=== PATIENT | female | born 1965 | race Caucasian/White ===

== ENCOUNTER 2016-09-11 08:07 | Inpatient (IN) | payer MEDICAID ==
[2016-09-11] VITALS (23 sets, daily range): BP systolic 82–116; BP diastolic 39–94; PULSE 61–83; RESP 9–20; TEMP 98.4; Ht 172.7 cm; Wt 66.0 kg
[~2016-09-11] VITALS: Ht 172.7 cm; Wt 66.0 kg
[2016-09-11] MEDS ORDERED: ASPIRIN 81 MG TAB PO STA (08:16)
[2016-09-11] MEDS ORDERED: NITROGLYCERIN 2% 1 GM OINT PKT TD STA (08:16)
[2016-09-11 08:42] LABS: ADD SCAN DIFF NO
[2016-09-11 08:48] LABS: BASOPHIL # 0.1 10^3/ul (0.0-0.1); BASOPHILS % 0.6 % (0.0-2.0); EOSINOPHILS # 0.6 10^3/ul (0.0-0.5); EOSINOPHILS % 4.7 % (0.0-7.0); HEMATOCRIT 43.8 % (37.0-47.0); HEMOGLOBIN 14.3 g/dl (12.0-16.0); LYMPHOCYTES # 3.8 10^3/ul (0.8-2.9); LYMPHOCYTES % 30.8 % (15.0-51.0); MEAN CORPUSCULAR HEMOGLOBIN 31.4 pg (29.0-33.0); MEAN CORPUSCULAR HGB CONC 32.6 g/dl (32.0-37.0); MEAN CORPUSCULAR VOLUME 96.1 fl (82.0-101.0); MEAN PLATELET VOLUME 11.3 fl (7.4-10.4); MONOCYTE # 0.8 10^3/ul (0.3-0.9); MONOCYTES % 6.3 % (0.0-11.0); NEUTROPHIL # 7.1 10^3/ul (1.6-7.5); NEUTROPHILS % 57.2 % (39.0-77.0); PLATELET COUNT 238 10^3/UL (140-415); RED BLOOD COUNT 4.56 10^6/ul (4.20-5.40); RED CELL DISTRIBUTION WIDTH 13.6 % (11.5-14.5); WHITE BLOOD COUNT 12.4 10^3/ul (4.8-10.8)
--- NOTE | 2016-09-11 08:50 | RADRPT ---
PROCEDURE: Chest Radiograph. CLINICAL INDICATION: Chest pain TECHNIQUE: Single frontal chest radiograph. COMPARISON: None available FINDINGS: The cardiomediastinal silhouette is within normal limits. No infiltrate or effusion is seen. Th e bones are intact. IMPRESSION: 1. Unremarkable chest radiograph. RPTAT: KK .Chandrakant Hernandez MD, MD Date Time Electronically viewed and signed by .Chandrakant Hernandez MD, on 09/11/2016 08:50 .B/
[2016-09-11 08:53] LABS: INR 0.9; PROTIME 12.1 Sec (12.2-14.2); PT RATIO 0.9
[2016-09-11 08:54] LABS: POTASSIUM 3.5 mmol/L (3.5-5.1)
[2016-09-11 08:56] LABS: CREATININE 1.07 mg/dl (0.44-1.00)
[2016-09-11 08:57] LABS: CALCIUM 9.3 mg/dl (8.4-10.2)
[2016-09-11 08:58] LABS: PARTIAL THROMBOPLASTIN TIME 26.9 Sec (25.0-35.0)
[2016-09-11] MEDS ORDERED: SERT100T PO (09:16)
[2016-09-11] MEDS ORDERED: BUSP10TA2 PO (09:17)
[2016-09-11] MEDS ORDERED: AMLO5TAB4 PO (09:17)
[2016-09-11] MEDS ORDERED: CLOP75TA27 PO (09:18)
[2016-09-11] MEDS ORDERED: NIT4 SL (09:19)
[2016-09-11 09:24] LABS: TROPONIN-I 2.03 ng/ml (0.00-0.12)
[2016-09-11] MEDS ORDERED: HEPARIN 1000 UNITS/ML 10 ML INJ IV STA (09:38)
[2016-09-11] MEDS ORDERED: HEPARIN 25000 UNITS/250 ML 250 ML IV STA (09:38)
--- NOTE | 2016-09-11 10:07 | ERA ---
ER Documentation Chief Complaint Date/Time DATE: 09/11/16 TIME: 10:01 Chief Complaint BROUGHT IN VIA EMS DUE TO CHEST PAIN HPI This is a 50-year-old female presents with chest pain. The patient reports a history of Prinzmetal's angina with a clean angiogram approximately 1 year ago. The patient currently takes Plavix. The patient states that prior to arrival she noted substernal chest pressure and diaphoresis that is consistent with her anginal equivalent. The patient took nitro at home with no relief. Her pain is dramatically improved with aspirin and nitro via EMS. Patient is now pain- free. She denies any pleuritic pain. She does describe a history of anxiety but states this is somewhat different. ROS All systems reviewed and are negative except as per history of present illness. Medications Home Meds Reported Medications Nitroglycerin* (Nitrostat*) 0.4 Mg Tab.subl, 0.4 MG SL Q5MIN Y for CHEST PAIN, BOTTLE 09/11/16 Clopidogrel Bisulfate (Clopidogrel) 75 Mg Tablet, 75 MG PO DAILY, #30 TAB 09/11/16 Amlodipine Besylate* (Norvasc*) 5 Mg Tablet, 5 MG PO BID, TAB 09/11/16 Buspirone Hcl* (Buspirone Hcl*) 10 Mg Tab, 15 MG PO BID, TAB 09/11/16 Sertraline Hcl* (Zoloft*) 100 Mg Tablet, 100 MG PO DAILY, #30 TAB 09/11/16 Allergies Allergies: Coded Allergies: bupropion (Verified Allergy, Unknown, hives, 09/11/16) PMhx/Soc History of Surgery: Yes (donated r. kidney to brother 2014) Hx Cardiac Disorders: Yes ([place] 2016, Angina) Hx Psychiatric Problems: Yes (Anxiety) Hx Alcohol Use: Yes Hx Substance Use: No Hx Tobacco Use: No Smoking Status: Never smoker FmHx Family History: No diabetes Physical Exam Vitals Vital Signs Date Time Temp Pulse Resp B/P Pulse Ox O2 Delivery O2 Flow Rate FiO2 09/11/16 09:30 88 101/88 09/11/16 08:44 98.4 78 16 100/55 100 Nasal Cannula 2.0 09/11/16 08:42 Nasal Cannula 2 09/11/16 08:17 98.3 88 18 139/92 98 Physical Exam General: Well developed, well nourished, no acute distress Head: Normocephalic, atraumatic. Eyes: Pupils equally reactive, EOM intact ENT: Moist mucous membranes Neck: Supple, no lymphadenopathy Respiratory: Lungs clear bilaterally, no distress Cardiovascular: RRR, no murmurs, rubs, or gallops Abdominal: Soft, non-tender, non-distended, no peritoneal signs : Deferred MSK: No edema, no unilateral swelling, 5/5 strength, no pulse deficits Neurologic: Alert and oriented, moving all extremities, normal speech, no focal weakness, no cerebellar signs Skin: No rash Psych: Normal mood Result Diagram: 09/11/1635 09/11/1635 Results 24 hrs Laboratory Tests Test 09/11/16 08:35 White Blood Count 12.410^3/ul Red Blood Count 4.5610^6/ul Hemoglobin 14.3g/dl Hematocrit 43.8% Mean Corpuscular Volume 96.1fl Mean Corpuscular Hemoglobin 31.4pg Mean Corpuscular Hemoglobin Concent 32.6g/dl Red Cell Distribution Width 13.6% Platelet Count 82994^3/UL Mean Platelet Volume 11.3fl Neutrophils % 57.2% Lymphocytes % 30.8% Monocytes % 6.3% Eosinophils % 4.7% Basophils % 0.6% Nucleated Red Blood Cells % 0.0/100WBC Neutrophils # 7.110^3/ul Lymphocytes # 3.810^3/ul Monocytes # 0.810^3/ul Eosinophils # 0.610^3/ul Basophils # 0.110^3/ul Nucleated Red Blood Cells # 0.010^3/ul Prothrombin Time 12.1Sec Prothrombin Time Ratio 0.9 INR International Normalized Ratio 0.90 Activated Partial Thromboplast Time 26.9Sec Sodium Level 142mmol/L Potassium Level 3.5mmol/L Chloride Level 103mmol/L Carbon Dioxide Level 27mmol/L Anion Gap 16 Blood Urea Nitrogen 20mg/dl Creatinine 1.07mg/dl Glucose Level 126mg/dl Calcium Level 9.3mg/dl Troponin I 2.030ng/ml Current Medications Medications (Trade) Dose Ordered Sig/Broderick Route PRN Reason Start Time Stop Time Status Last Admin Dose Admin Aspirin (Aspirin) 162 mg ONCE STAT PO 09/11/16 08:16 09/11/16 08:21 DC 09/11/16 08:56 Nitroglycerin (Nitroglycerin 2% Oint) 1 inch ONCE STAT TD 09/11/16 08:16 09/11/16 08:21 DC 09/11/16 08:56 Heparin Sodium (Porcine) 3954 unit 3,954 unit ONCE STAT IV 09/11/16 09:38 09/11/16 09:40 DC Heparin Sodium (Porcine) (Heparin 85042 Units/250 ml) 250 ml @ 0 mls/hr ONCE STAT IV 09/11/16 09:38 09/11/16 09:40 DC Procedures/MDM EKG, MONITORS, & DIAGNOSTIC IMAGING: EKG #1 8:08 AM EKG: I reviewed and interpreted a 12-lead EKG. Rhythm: Normal sinus rhythm Ectopy: None Intervals: No abnormalities ST segments: Repolarization noted in leads II, III, and aVF, subtle ST segment elevation in lead 2 T waves: No contiguous inversions Repeat EK:11 AM EKG: I reviewed and interpreted a 12-lead EKG. Rhythm: Normal sinus rhythm Ectopy: None Intervals: No abnormalities ST segments: Repolarization noted in leads II, III, and aVF, subtle ST segment elevation in lead 2 T waves: No contiguous inversions Repeat EKG at 8:25 AM EKG: I reviewed and interpreted a 12-lead EKG. Rhythm: Normal sinus rhythm Ectopy: None Intervals: No abnormalities ST segments: Repolarization noted in leads II, III, and aVF, subtle ST segment elevation in lead 2 T waves: No contiguous inversions Chest x-ray: I reviewed and interpreted a 1 view of the chest Mediastinum: No enlargement Cardiac silhouette: No cardiomegaly Airspace: Clear lung mckeon bilaterally without evidence of pneumothorax Bones: No evidence of fracture LAB INTERPRETATION: Elevated troponin of 2 MEDICAL DECISION MAKING: The patient's history, physical exam and clinical presentation is concerning for possible cardiogenic etiology and acute coronary syndrome. The patient does describe a clean angiogram and history of Prinzmetal's angina. This is possibly related to coronary vasospasm. However, the patient's EKG is borderline consistent with possible acute [place]. However, the patient is also chest pain-free. A rapid phone call to cardiology was made. Please see timing section below. Based on the patient's clinical exam and history and risk factors, I have a much lower clinical concern for pulmonary embolism, acute aortic dissection, pneumothorax, pneumonia, cardiac tamponade HEART Score: 7 MACE Rate: 65% Shared Decision Making: We had a conversation regarding risk stratification, MACE rate, and the risks, benefits, alternatives of disposition planning options. Disposition planning: ICU admission ER COURSE: Upon arrival the patient was chest pain-free however her EKG is abnormal. An immediate phone call to mba intern Dr. Ellis was made. Initial contact at approximately 815. He reviewed the EKG and felt this was not consistent with ST elevation myocardial infarction. He agrees with medical management at this time. The patient had serial EKGs that were unchanged. However, the patient's troponin became elevated. I again spoke with Dr. Ellis. He recommended heparin bolus and drip and will take the patient to the [facility]ning [facility] later today. The patient remains chest pain-free. I kept the patient and/or family informed of laboratory and diagnostic imaging results throughout the emergency room course. DISPOSITION PLAN: ICU admission given patient's significant troponin elevation CONSULTATION: Accepting care team and consultations: I discussed the current laboratory data, diagnostic imaging and emergency care provided. Admitting team: Dr. Crowley Admitting team indication: Insurance directed Consulting services: Cardiology, Dr. Ellis Critical Care Note: Total time: 36 minutes Indication/Organ System Threat: Acute coronary syndrome I spent the above amount of critical care time with the patient, not including billable procedures. This included chart review, consultations, repeat bedside evaluations, and titration of appropriate medications to prevent cardiopulmonary or respiratory collapse. Departure Diagnosis: Primary Impression: Non-ST elevation myocardial infarction (NSTEMI) Additional Impression: Acute coronary syndrome Condition: Serious ELIGIO VILLALOBOS MD Sep 11, 2016 10:07
[2016-09-11] MEDS ORDERED: BISACODYL (EC) 5 MG TAB PO PRN (11:30)
[2016-09-11] MEDS ORDERED: ACETAMINOPHEN 325 MG TAB PO PRN (11:30)
[2016-09-11] MEDS ORDERED: HEPARIN 1000 UNITS/ML 10 ML INJ IV ONE (11:30)
[2016-09-11] MEDS ORDERED: ONDANSETRON 4 MG TAB PO PRN (11:30)
[2016-09-11] MEDS ORDERED: DOCUSATE SODIUM 100 MG CAP PO PRN (11:30)
[2016-09-11] MEDS ORDERED: NITROGLYCERIN (SL) 0.4 MG TAB SL PRN ×2 (11:30)
[2016-09-11] MEDS ORDERED: HEPARIN 1000 UNITS/ML 10 ML INJ IV PRN (11:30)
[2016-09-11 12:49] LABS: CK-MB 9.07 ng/ml (0.0-2.4)
[2016-09-11] MEDS ORDERED: SOD CHLORIDE 0.45% 1,000 ML IV SCH (13:00)
[2016-09-11] MEDS ORDERED: HEPARIN 25000 UNITS/250 ML 250 ML IV SCH (13:00)
[2016-09-11] MEDS: ALBUTEROL/IPRATROPIUM (NEB) 3 ML AMP NEB SCH ×3 (13:00→21:19)
[2016-09-11] MEDS ORDERED: IODIXANOL LOCM 100 ML BTL ONE (14:30)
[2016-09-11] MEDS ORDERED: LIDOCAINE 1% (MDV) 20 ML INJ ONE (14:30)
[2016-09-11] MEDS ORDERED: FENTAnyl 50 MCG/ML VIAL ONE (14:31)
[2016-09-11] MEDS ORDERED: HEPARIN 1000 UNITS/ML 10 ML INJ ONE (14:31)
[2016-09-11] MEDS ORDERED: MIDAZOLAM 1 MG/ML 2 ML INJ ONE (14:31)
[2016-09-11] MEDS ORDERED: NITROGLYCERIN (IC) 100 MCG/ML INJ ONE (14:31)
[2016-09-11] MEDS ORDERED: VERAPAMIL 5 MG INJ ONE (14:31)
[2016-09-11] MEDS ORDERED: SOD CHLORIDE 0.9% 500 ML ONE (14:44)
[2016-09-11 15:03] LABS: ADD SCAN DIFF NO
[2016-09-11 15:05] LABS: BASOPHIL # 0.1 10^3/ul (0.0-0.1); BASOPHILS % 0.5 % (0.0-2.0); EOSINOPHILS # 0.6 10^3/ul (0.0-0.5); EOSINOPHILS % 5.4 % (0.0-7.0); HEMATOCRIT 38.3 % (37.0-47.0); HEMOGLOBIN 12.7 g/dl (12.0-16.0); LYMPHOCYTES # 3.4 10^3/ul (0.8-2.9); LYMPHOCYTES % 32.1 % (15.0-51.0); MEAN CORPUSCULAR HGB CONC 33.2 g/dl (32.0-37.0); MEAN CORPUSCULAR VOLUME 96.5 fl (82.0-101.0); MEAN PLATELET VOLUME 11.3 fl (7.4-10.4); MONOCYTE # 0.8 10^3/ul (0.3-0.9); MONOCYTES % 7.4 % (0.0-11.0); NEUTROPHIL # 5.8 10^3/ul (1.6-7.5); NEUTROPHILS % 54.1 % (39.0-77.0); PLATELET COUNT 232 10^3/UL (140-415); RED BLOOD COUNT 3.97 10^6/ul (4.20-5.40); RED CELL DISTRIBUTION WIDTH 13.4 % (11.5-14.5); WHITE BLOOD COUNT 10.7 10^3/ul (4.8-10.8)
[2016-09-11 15:08] LABS: INR 0.94; PROTIME 12.6 Sec (12.2-14.2)
[2016-09-11 15:09] LABS: PARTIAL THROMBOPLASTIN TIME 43.4 Sec (25.0-35.0)
[2016-09-11] MEDS ORDERED: CLOPIDOGREL 300 MG TAB ONE (15:26)
--- NOTE | 2016-09-11 15:50 | CONS ---
Date/Time of Note Date/Time of Note DATE: 09/11/16 TIME: 15:47 Assessment/Plan Assessment/Plan Problems: (1) Acute coronary syndrome Status: Acute (2) Non-ST elevation myocardial infarction (NSTEMI) Status: Acute Additional Assessment/Plan [facility] acute LAD prox Stenosis PCI of prox LAD 3.0x8mm synergy ASA + Plavix Atorvastatin 2D echo plan for possible d/c tomorrow. f.u with primary admission discharge rn. Consultation Date/Type/Reason Admit Date/Time Sep 11, 2016 at 11:27 Date of Consultation: Sep 11, 2016 Type of Consultation: Interventional Cardiology Reason for Consultation NSTEMI Hx of Present Illness Patient is 50 year old F with CP, with EKG chagnes, not meeting STEMI criteria in ER. Admitted with ACS and first trop was 2.0, meet NSTEMI reange. pt [facility] CATH. Constitutional: no complaints Past Medical History Medical History: angina, coronary artery disease Social History Smoking Status: Current every day smoker Exam/Review of Systems Vital Signs Vitals Vital Signs Date Time Temp Pulse Resp B/P Pulse Ox O2 Delivery O2 Flow Rate FiO2 09/11/16 13:30 74 16 86/60 99 Nasal Cannula 09/11/16 13:15 97.7 09/11/16 12:08 2.0 Exam Constitutional: alert Psych: no complaints Head: normocephalic Eyes: nl conjunctiva ENMT: nl external ears & nose Neck: supple Respiratory: clear to auscultation Cardiovascular: regular rate and rhythm Musculoskeletal: nl extremities to inspection Extremities: normal pulses Results Result Diagram: 09/11/16 1410 09/11/16 0835 Results 24 hrs Laboratory Tests Test 09/11/16 08:35 09/11/16 14:10 White Blood Count 12.4 H 10.7 Red Blood Count 4.56 3.97 L Hemoglobin 14.3 12.7 Hematocrit 43.8 38.3 Mean Corpuscular Volume 96.1 96.5 Mean Corpuscular Hemoglobin 31.4 32.0 Mean Corpuscular Hemoglobin Concent 32.6 33.2 Red Cell Distribution Width 13.6 13.4 Platelet Count 238 232 Mean Platelet Volume 11.3 H 11.3 H Neutrophils % 57.2 54.1 Lymphocytes % 30.8 32.1 Monocytes % 6.3 7.4 Eosinophils % 4.7 5.4 Basophils % 0.6 0.5 Nucleated Red Blood Cells % 0.0 0.0 Neutrophils # 7.1 5.8 Lymphocytes # 3.8 H 3.4 H Monocytes # 0.8 0.8 Eosinophils # 0.6 H 0.6 H Basophils # 0.1 0.1 Nucleated Red Blood Cells # 0.0 0.0 Prothrombin Time 12.1 L 12.6 Prothrombin Time Ratio 0.9 1.0 INR International Normalized Ratio 0.90 0.94 Activated Partial Thromboplast Time 26.9 43.4 H Sodium Level 142 Potassium Level 3.5 Chloride Level 103 Carbon Dioxide Level 27 Anion Gap 16 Blood Urea Nitrogen 20 Creatinine 1.07 H Glucose Level 126 Calcium Level 9.3 Creatine Kinase 141 Creatinine Kinase MB (Mass) 9.07 H Troponin I 2.030 *H Medications Medications Current Medications Ceftriaxone Sodium (Rocephin) 50 ml @ 100 mls/hr Q24H IVPB ; Start 09/11/16 at 13:00 Amlodipine Besylate (Norvasc) 5 mg BID PO ; Start 09/11/16 at 21:00 Buspirone HCl (Buspar) 15 mg BID PO ; Start 09/11/16 at 21:00 Clopidogrel Bisulfate (plaVIX) 75 mg DAILY PO ; Start 09/12/16 at 09:00 Nitroglycerin (Nitroglycerin (Sl Tab) 0.4 Mg) 1 tab [id number] PRN SL CHEST PAIN ; Start 09/11/16 at 11:30 Sertraline HCl 100 mg 100 mg DAILY PO ; Start 09/12/16 at 09:00 Sodium Chloride (1/2 NS) 1,000 ml @ 75 mls/hr [id number] IV ; Start 09/11/16 at 13 :00 Ondansetron HCl (Zofran Tab) 4 mg Q6H PRN PO NAUSEA AND/OR VOMITING; Start at 11:30 Acetaminophen (Tylenol Tab) 650 mg Q6H PRN PO PAIN LEVEL 1-3 OR FEVER; Start at 11:30 Morphine Sulfate (morphine) 2 mg Q4H PRN IV PAIN LEVEL 7-10; Start 09/11/16 at 11:30 Docusate Sodium (Colace) 100 mg Q12H PRN PO CONSTIPATION; Start 09/11/16 at 11: 30 Bisacodyl (Dulcolax) 5 mg DAILY PRN PO CONSTIPATION; Start 09/11/16 at 11:30 Pantoprazole (Protonix Tab) 40 mg DAILY@06 PO ; Start 09/12/16 at 06:00 Aspirin (Aspirin) 81 mg DAILY PO ; Start 09/12/16 at 09:00 YARELY SHRESTHA MD Sep 11, 2016 15:50
--- NOTE | 2016-09-11 16:02 | RADRPT ---
Echocardiogram Report Patient Name: PAKO BARRIENTOS Gender: Female Date: 1965 Study Date: 11-Sep-2016 Windows Consultant: Mauro Helton RDCS Location: 9 Ref. Physician: RON JOHNSON Quality: Adequate Procedures: Transthoracic echocardiogram with complete 2D, M-Mode, and doppler examination. Indications: NSTEMI. 2D/M Mode Doppler Measurement Value Normal Ranges Measurement Value Normal Ranges LVIDd 2D 4.1 3.5 - 5.6 cm AV Peak Woody 1.2 m/sec LVIDs 2D 2.1 2.1 - 4.1 cm AV Peak PG 6.0 mmHg FS 2D 48.5 % LVOT Peak Woody 1.1 m/sec LVPWd 2D 0.9 0.6 - 1.1 cm LVOT Peak PG 4.0 mmHg IVSd 2D 0.8 0.6 - 1.1 cm MV E Peak Woody 0.5 m/sec IVS/LVPW 2D 1.0 MV A Peak Owody 0.6 m/sec AoR Diam 2D 2.9 2.0 - 3.7 cm MV E/A 0.8 LA/Ao 2D 1 0 - 1 MV Decel Time 176 msec EDV 2D 67.9 cm3 MV E/A 0.8 ESV 2D 9.3 cm3 LA Dimen 2D 2.2 2.3 - 4.0 cm Findings Left Ventricle: Normal left ventricular systolic function. Normal left ventricular cavity size. Normal left ventricular wall thickness. Ejection fraction is visually estimated at 60 %. Tissue Doppler/Mitral Doppler indices are consistent with impaired relaxation (Stage I diastolic dysfunction). These segments of the LV are hypokinetic mid anterior segment and anterior apex segment. Right Ventricle: Normal right ventricular size. Normal right ventricular systolic function. Left Atrium: The left atrium is normal in size. Right Atrium: The right atrium is normal in size. Mitral Valve: Normal appearance of the mitral valve. Mild mitral annular calcification. No mitral valve regurgitation is seen. Aortic Valve: Normal appearance of the aortic valve. No significant aortic stenosis or insufficiency. Tricuspid Valve: Normal appearance of the tricuspid valve. Unable to obtain RVSP due to minimal presence of tricuspid regurgitation. Pulmonic Valve: Pulmonic valve not well visualized. Pericardium: Normal pericardium with no significant pericardial effusion. Aorta: Normal aortic root. IVC: Normal size and normal respiratory collapse consistent with normal right atrial pressure. Conclusions 1.Normal left ventricular systolic function. Normal left ventricular cavity size. Normal left ventricular wall thickness. Ejection fraction is visually estimated at 60 %. Tissue Doppler/Mitral Doppler indices are consistent with impaired relaxation (Stage I diastolic dysfunction). These segments of the LV are hypokinetic mid anterior segment and anterior apex segment. 2.Normal right ventricular size. Normal right ventricular systolic function. 3.Normal appearance of the mitral valve. Mild mitral annular calcification. No mitral valve regurgitation is seen. 4.Normal appearance of the aortic valve. No significant aortic stenosis or insufficiency. 5.Normal appearance of the tricuspid valve. Unable to obtain RVSP due to minimal presence of tricuspid regurgitation. Electronically Signed By: Jean Ellis 11-Sep-2016 16:01:58 -0700 Patient Name: PAKO BARRIENTOS Study Date: 11-Sep-2016 [id number]
--- NOTE | 2016-09-11 16:19 | SP ---
DATE OF PROCEDURE: 09/11/2016 INDICATIONS FOR THE PROCEDURE: 1. Non-ST elevation myocardial infarction. 2. Chest pain. PROCEDURES PERFORMED: 1. Selective right and left coronary angiography. 2. Left ventriculography with left ventricular pressure measurement. 3. Successful percutaneous coronary intervention of proximal left anterior descending with 3.0 x 8 mm Synergy drug-eluting stent. SUPERVISED PROCEDURAL SEDATION: Fluoroscopy. HISTORY OF PRESENT ILLNESS: The patient is a 50-year-old female with past medical history of hyper tension as well as drug abuse who presented to ER with complaint of midsternal chest pain, called 91 1. In the ER, her EKG had subtle anterior EKG changes, not meeting STEMI criteria. Patient was adm itted as acute coronary syndrome. First set of troponins came back 2.0. Patient was brought to [facility] laborer with non-ST elevation myocardial infarction as an urgent cardiac catheterization. PROCEDURE DETAILS: Patient is prepped and draped in supine position. The patient has been explaine d in detail regarding the procedure as well as procedure complications including but not limited to renal failure, stroke and bypass surgery. The patient's readiness has been confirmed prior to the pr ocedure. Right radial artery was prepped and draped and standard sheath was entered into right radi al artery. Followed by that, 0.035 wire [place] catheter was entered in retrogradely into the left ve ntricle. Left ventricular pressures were measured and LV gram was performed. Followed by that, it was removed, retrogradely without any aortic stenosis. Followed by that, left and right coronary ar maryan and coronary angiography was performed. After readying the patient, she was found to have plaq ue rupture and acute haziness of the proximal LAD. The diagnostic catheter was switched to the guid ing catheter. The EBU 3.5 guiding catheter engaged into left main. Followed by that, run through w cheryl was crossed the LAD lesion and successful direct stenting with 3.5 x 8 mm Synergy drug-eluting s tent was ____ with a good angiographic result. After that, all the wires and catheters had been rem denis. Final angiographic picture without any residual stenosis, without any complication and good a ngiographic result. CORONARY FINDINGS: 1. Left main: Mild diffuse disease. 2. LAD: Proximal segment has a hazy looking 80% eccentric stenosis with INGRID 2 flow in LAD. Mid distal LAD mild diffuse disease. 3. Left circumflex artery: Mild diffuse disease in left circumflex artery. 4. Right coronary artery: Mild diffuse disease of right coronary artery. CONCLUSIONS: 1. Acute proximal left anterior descending plaque rupture with 80% stenosis. 2. Successful percutaneous coronary intervention of proximal left anterior descending, 3.0 x 8 mm d rug-eluting stent. 3. Other coronaries are nonobstructive. RECOMMENDATIONS: 1. Aspirin and Plavix at least for 1 year. 2. Intensive care unit admission. 3. Possible discharge tomorrow and follow up with primary research electrician. Dictated By: YARELY SHRESTHA MD ML/NTS Conf#: [id number] DID#: [id number]
[2016-09-11 16:47] LABS: CK-MB 5.93 ng/ml (0.0-2.4)
[2016-09-11 16:59] LABS: TROPONIN-I 1.93 ng/ml (0.00-0.12)
[2016-09-11 17:10] LABS: CK-MB 4.68 ng/ml (0.0-2.4)
[2016-09-11] MEDS: CEFTRIAXONE 1 GM/50 ML (PMX) 50 ML IVPB SCH (17:13)
[2016-09-11] MEDS: SOD CHLORIDE 0.9% 1,000 ML IV SCH (17:13)
[2016-09-11 17:27] LABS: TROPONIN-I 1.72 ng/ml (0.00-0.12)
[2016-09-11] MEDS ORDERED: 1/2 NS + KCL 20 MEQ 1,000 ML IV SCH (18:00)
--- NOTE | 2016-09-11 18:43 | HP ---
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 CHIEF COMPLAINT: Chest pain. HISTORY OF PRESENT ILLNESS: This is a pleasant 50-year-old female with past medical history of hype rtension, anxiety, coronary artery disease, myocardial infarction and major depression, who presents to [facility] having acute chest discomfort which occurred this morning, nicotine dependency and angina with coronary angiogram approximately a year ago. She is currently is on Chanda vix and was brought into the emergency room via EMS secondary to having substernal chest pain with d iaphoresis consistent with her anginal pain in the past. The patient took nitroglycerin at home wit h no relief. The pain dramatically improved with aspirin and nitroglycerin via EMS. Upon evaluatio n in the emergency room, the patient's troponin was found to be 2.03, creatinine 1.07. EKG showed n ormal sinus rhythm with repolarization noted in lead III, II in avF. Septal ST segment elevation in lead 2. Patient was seen and evaluated by cardiology and [facility] where she had selective right and left coronary angiog soto and left ventriculography with left ventricular pressure measurement and successful PCI of the proximal left anterior descending with a 3.0 x 8 mm Synergy drug-eluting stent. Patient tolerated the procedure well and was taken to recovery room which at this time, the patient is asymptomatic wi thout any chest pain or shortness of breath. At this time, the patient denies having any fever, ch ills, weight gain, weight loss, anorexia. It is positive for chest pain [facility] No shortness of breath. Positive for diaphoresis. No abdominal pain, no nausea, vomi ting, diarrhea. No headache, dizziness, lightheadedness. No change in visual acuity, diplopia, tiffanie tophobia. No dysuria, hematuria, urgency, incontinence or any other discomfort. PAST MEDICAL AND SURGICAL HISTORY: As above per HPI. MEDICATIONS: 1. Amlodipine 5 mg. 2. BuSpar 10 mg. 3. Plavix 75 mg. 4. Nitroglycerin 0.4 mg 5. Zoloft 100 mg. ALLERGIES: BUPROPION. SOCIAL HISTORY: Positive for smoking 10 cigarettes per day. Occasional alcohol on special occasion s only. No illicit drug. FAMILY HISTORY: Father had history of myocardial infarction. Brother has history of coronary arter y disease. PAST SURGICAL HISTORY: Nephrectomy. The patient donated one of her kidneys to her brother. REVIEW OF SYSTEMS: As above per HPI, otherwise 12 review of systems found to be negative. PHYSICAL EXAMINATION: VITAL SIGNS: Temperature 97.9, pulse 60, respiration rate 18, blood pressure 86/60, oxygen saturati on 99% in room air. GENERAL APPEARANCE: The patient is lying in bed comfortably without any acute distress. She is aguilar ke, alert, oriented. She is able to answer my questions properly. EYES AND ENT: Conjunctivae and lids are normal. Pupils are normal. Extraocular movements normal. Hearing grossly normal. Lips are normal. Oral mucosa is moist. NECK: Supple. Trachea is midline. No lymphadenopathy. RESPIRATORY: Effort is normal. Clear to auscultation bilaterally. CARDIOVASCULAR: Normal S1, S2. Regular rhythm and rate. No murmur, no bruits, no edema. Peripher al pulses, radial pulses palpable. Cap refill is normal. CHEST: Normal expansion of thorax during inspiration. GASTROINTESTINAL: Abdomen is soft, nontender, nondistended. Bowel sounds present. No guarding, no rebound. GENITOURINARY: Deferred. MUSCULOSKELETAL: Right upper extremity is status post left heart catheterization radially. There i s no evidence of hematoma. Site of left heart catheterization is dry and clean. The rest of the up per and lower extremities within normal limits. Full range of motion. NEUROLOGIC: Cranial nerves II through XII are grossly intact. PSYCHIATRIC: Normal judgment and insight. Alert and oriented x3. Mood and affect is normal. LABORATORY WORK AND IMAGING: Sodium 142, potassium 3.5, chloride 103, bicarbonate 27, BUN 20, creat inine 1.07, glucose 126, calcium 9.3. Troponin 2.03. WBC 12.4, hemoglobin 14.3, hematocrit 43.8, p latelets 238. ASSESSMENT AND PLAN: 1. Non-ST elevation myocardial infarction. Patient is status post selective right and left coronar y angiography and successful percutaneous coronary intervention of the proximal left anterior descen ding with drug-eluting stent. She has been placed on aspirin, Plavix, statin and beta alphonso. 2. Essential hypertension, well controlled on medical management. We will place the patient on par ameters. 3. Anxiety. Continue BuSpar and Zoloft. 4. Leukocytosis, likely reactive. 5. Nicotine dependency. We will place the patient on nicotine patch. 6. We will continue to monitor patient closely. Further recommendations, management and treatment as per clinical course. Total amount of time was spent for evaluation of patient and admission workup 1 hour. Dictated By: RON JOHNSON MD PN/NTS Conf#: [id number] DID#: [id number]
[2016-09-11 20:54] LABS: CK-MB 4.94 ng/ml (0.0-2.4)
[2016-09-11] MEDS: AMLODIPINE 5 MG TAB PO SCH (21:00)
[2016-09-11] MEDS: METOPROLOL 25 MG TAB PO SCH (21:00)
[2016-09-11 21:03] LABS: TROPONIN-I 2.3 ng/ml (0.00-0.12)
[2016-09-11] MEDS: BUSPIRONE 10 MG TAB PO SCH (21:26)
[2016-09-11] MEDS: ATORVASTATIN 40 MG TAB PO SCH (21:27)
[2016-09-11] MEDS: morphine 2 MG INJ IV PRN (21:39)
[2016-09-12] VITALS (25 sets, daily range): BP systolic 65–110; BP diastolic 41–77; PULSE 64–97; RESP 9–25
[2016-09-12] MEDS: ALBUTEROL/IPRATROPIUM (NEB) 3 ML AMP NEB SCH ×6 (01:05→20:46)
[2016-09-12] MEDS: SOD CHLORIDE 0.9% 1,000 ML IV SCH (02:30)
[2016-09-12] MEDS: PANTOPRAZOLE (EC) 40 MG TAB PO SCH (05:53)
[2016-09-12 05:55] LABS: ADD SCAN DIFF NO
[2016-09-12 06:06] LABS: BASOPHIL # 0.1 10^3/ul (0.0-0.1); BASOPHILS % 0.5 % (0.0-2.0); EOSINOPHILS # 0.5 10^3/ul (0.0-0.5); EOSINOPHILS % 5.1 % (0.0-7.0); HEMOGLOBIN 12.4 g/dl (12.0-16.0); LYMPHOCYTES # 2.7 10^3/ul (0.8-2.9); LYMPHOCYTES % 28.5 % (15.0-51.0); MEAN CORPUSCULAR HEMOGLOBIN 31.8 pg (29.0-33.0); MEAN CORPUSCULAR HGB CONC 32.6 g/dl (32.0-37.0); MEAN CORPUSCULAR VOLUME 97.4 fl (82.0-101.0); MEAN PLATELET VOLUME 11.6 fl (7.4-10.4); MONOCYTE # 0.8 10^3/ul (0.3-0.9); MONOCYTES % 8.6 % (0.0-11.0); NEUTROPHIL # 5.4 10^3/ul (1.6-7.5); NEUTROPHILS % 56.7 % (39.0-77.0); PLATELET COUNT 214 10^3/UL (140-415); RED CELL DISTRIBUTION WIDTH 13.8 % (11.5-14.5); WHITE BLOOD COUNT 9.5 10^3/ul (4.8-10.8)
[2016-09-12 06:25] LABS: POTASSIUM 4.4 mmol/L (3.5-5.1)
[2016-09-12 06:28] LABS: CREATININE 1.09 mg/dl (0.44-1.00)
[2016-09-12 06:29] LABS: CHOL/HDL RATIO 3.3 RATIO; MAGNESIUM 2.1 mg/dl (1.7-2.5)
[2016-09-12 08:22] LABS: THYROID STIMULATING HORMONE 1.74 MIU/L (0.465-4.680)
[2016-09-12] MEDS: NICOTINE (14 MG/24 HR) PATCH TRANSDERM SCH (08:29)
[2016-09-12] MEDS: CLOPIDOGREL 75 MG TAB PO SCH (08:29)
[2016-09-12] MEDS: SERTRALINE 100 MG TAB PO SCH (08:29)
[2016-09-12] MEDS: BUSPIRONE 10 MG TAB PO SCH ×2 (08:29→21:51)
[2016-09-12] MEDS: ASPIRIN 81 MG TAB PO SCH (08:29)
[2016-09-12] MEDS: METOPROLOL 25 MG TAB PO SCH ×2 (08:29→21:00)
[2016-09-12] MEDS: AMLODIPINE 5 MG TAB PO SCH (08:30)
[2016-09-12] MEDS ORDERED: ASPIRIN 81 MG TAB PO SCH (09:00)
[2016-09-12] MEDS ORDERED: CLOPIDOGREL 75 MG TAB PO SCH (09:00)
--- NOTE | 2016-09-12 10:25 | PN ---
Date/Time of Note Date/Time of Note DATE: 09/12/16 TIME: 10:24 Assessment/Plan VTE Prophylaxis VTE Prophylaxis Intervention: LMWH Lines/Catheters IV [facility]ter Type (from [facility]): Peripheral IV Urinary Cath still in place: No Assessment/Plan Chief Complaint/Hosp Course ASSESSMENT AND PLAN: 1. Non-ST elevation myocardial infarction. Patient is status post selective right and left coronary angiography and successful percutaneous coronary intervention of the proximal left anterior descending with drug-eluting stent. Continue aspirin, Plavix, statin and beta alphonso. 2. Essential hypertension, well controlled on medical management. Continue parameters. 3. Anxiety. Continue BuSpar and Zoloft. 4. Leukocytosis, likely reactive. Resolved 5. Nicotine dependency. We will place the patient on nicotine patch. We will continue to monitor patient closely. Further recommendations, management and treatment as per clinical course. Problems: Subjective 24 Hr Interval Summary Free Text/Dictation Denies any chest pain or shortness of breath Denies any abdominal pain No nausea vomiting diarrhea Exam/Review of Systems Vital Signs Vitals Vital Signs Date Time Temp Pulse Resp B/P Pulse Ox O2 Delivery O2 Flow Rate FiO2 09/12/16 09:13 76 16 96 21 09/12/16 09:00 89/62 Room Air 09/12/16 08:00 97.7 09/11/16 16:00 2.0 Intake and Output 09/11/16 09/11/16 09/12/16 15:00 23:00 07:00 Intake Total 2 ml 825 ml 1325 ml Output Total 300 ml Balance 2 ml 525 ml 1325 ml Exam General: The patient is well-developed, Not in acute distress. HEENT: Atraumatic, normocephalic. The pupils are equal and round . Neck: Supple with full range of motion. Chest: Normal expansion of the thorax during inspiration Lungs: Clear to auscultation bilaterally Heart: Normal S1-S2, Regular rhythm and rate. Abdomen: Soft , nontender, nondistended , bowel sounds are present. Extremities: Normal to inspection, no edema no cyanosis Neurologic: Normal mental status,The patient is awake, alert and oriented . Results Result Diagram: 09/12/16 0445 09/12/16 0445 Results 24 hrs Laboratory Tests Test 09/11/16 14:10 09/11/16 16:30 09/11/16 20:15 09/12/16 04:45 White Blood Count 10.7 9.5 Red Blood Count 3.97 L 3.90 L Hemoglobin 12.7 12.4 Hematocrit 38.3 38.0 Mean Corpuscular Volume 96.5 97.4 Mean Corpuscular Hemoglobin 32.0 31.8 Mean Corpuscular Hemoglobin Concent 33.2 32.6 Red Cell Distribution Width 13.4 13.8 Platelet Count 232 214 Mean Platelet Volume 11.3 H 11.6 H Neutrophils % 54.1 56.7 Lymphocytes % 32.1 28.5 Monocytes % 7.4 8.6 Eosinophils % 5.4 5.1 Basophils % 0.5 0.5 Nucleated Red Blood Cells % 0.0 0.0 Neutrophils # 5.8 5.4 Lymphocytes # 3.4 H 2.7 Monocytes # 0.8 0.8 Eosinophils # 0.6 H 0.5 Basophils # 0.1 0.1 Nucleated Red Blood Cells # 0.0 0.0 Prothrombin Time 12.6 Prothrombin Time Ratio 1.0 INR International Normalized Ratio 0.94 Activated Partial Thromboplast Time 43.4 H Creatine Kinase 108 85 84 Creatine Kinase Index 5.5 5.5 5.9 Creatinine Kinase MB (Mass) 5.93 H 4.68 H 4.94 H Troponin I 1.930 *H 1.720 *H 2.300 *H Sodium Level 143 Potassium Level 4.4 Chloride Level 107 Carbon Dioxide Level 26 Anion Gap 14 Blood Urea Nitrogen 13 Creatinine 1.09 H Glucose Level 111 Calcium Level 9.0 Magnesium Level 2.1 Triglycerides Level 176 H Cholesterol Level 154 LDL Cholesterol, Calculated 73 HDL Cholesterol 46 Cholesterol/HDL Ratio 3.3 Thyroid Stimulating Hormone (TSH) 1.740 Medications Medications Current Medications Ceftriaxone Sodium (Rocephin) 50 ml @ 100 mls/hr Q24H IVPB Last administered on 09/11/16 17:13; Admin Dose 100 MLS/HR; Start 09/11/16 at 13:00 Amlodipine Besylate (Norvasc) 5 mg BID PO ; Start 09/11/16 at 21:00 Buspirone HCl (Buspar) 15 mg BID PO Last administered on 09/12/16 08:29; Admin Dose 15 MG; Start 09/11/16 at 21:00 Nitroglycerin (Nitroglycerin (Sl Tab) 0.4 Mg) 1 tab [id number] PRN SL CHEST PAIN ; Start 09/11/16 at 11:30 Sertraline HCl (Zoloft) 100 mg DAILY PO Last administered on 09/12/16 08:29; Admin Dose 100 MG; Start 09/12/16 at 09:00 Ondansetron HCl (Zofran Tab) 4 mg Q6H PRN PO NAUSEA AND/OR VOMITING Last administered on 09/12/16 00:37; Admin Dose 4 MG; Start 09/11/16 at 11:30 Acetaminophen (Tylenol Tab) 650 mg Q6H PRN PO PAIN LEVEL 1-3 OR FEVER; Start at 11:30 Morphine Sulfate (morphine) 2 mg Q4H PRN IV PAIN LEVEL 7-10 Last administered on 09/11/16 21:39; Admin Dose 2 MG; Start 09/11/16 at 11:30 Docusate Sodium (Colace) 100 mg Q12H PRN PO CONSTIPATION Last administered on 00:19; Admin Dose 100 MG; Start 09/11/16 at 11:30 Bisacodyl (Dulcolax) 5 mg DAILY PRN PO CONSTIPATION; Start 09/11/16 at 11:30 Pantoprazole 40 mg 40 mg DAILY@06 PO Last administered on 09/12/16 05:53; Admin Dose 40 MG; Start 09/12/16 at 06:00 Sodium Chloride (NS) 1,000 ml @ 100 mls/hr Q10H IV Last administered on 17:13; Admin Dose 100 MLS/HR; Start 09/11/16 at 16:30; Stop 09/12/16 at 10: 29 Clopidogrel Bisulfate (plaVIX) 75 mg DAILY PO Last administered on 09/12/16 08 :29; Admin Dose 75 MG; Start 09/12/16 at 09:00 Aspirin (Aspirin) 81 mg DAILY PO Last administered on 09/12/16 08:29; Admin Dose 81 MG; Start 09/12/16 at 09:00 Atorvastatin Calcium (Lipitor) 40 mg HS PO Last administered on 09/11/16 21:27 ; Admin Dose 40 MG; Start 09/11/16 at 21:00 Metoprolol Tartrate (Lopressor) 25 mg BID PO ; Start 09/11/16 at 21:00 Nicotine (Nicoderm 14 Mg/ 24hr) 1 patch DAILY TRANSDERM Last administered on t 08:29; Admin Dose 1 PATCH; Start 09/12/16 at 09:00 RON JOHNSON MD Sep 12, 2016 10:25
[2016-09-12] MEDS: CEFTRIAXONE 1 GM/50 ML (PMX) 50 ML IVPB SCH (12:52)
--- NOTE | 2016-09-12 13:13 | CONS ---
Date/Time of Note Date/Time of Note DATE: 09/12/16 TIME: 13:12 Consult Date/Type/Reason Admit Date/Time Sep 11, 2016 at 11:27 Initial Consult Date 09/11/16 Type of Consultation: Interventional Cardiology Objective Vital Signs Date Time Temp Pulse Resp B/P Pulse Ox O2 Delivery O2 Flow Rate FiO2 09/12/16 12:00 71 09/12/16 12:00 98.7 17 89/45 99 Room Air 09/12/16 09:13 21 09/11/16 16:00 2.0 Intake and Output 09/11/16 09/11/16 09/12/16 15:00 23:00 07:00 Intake Total 2 ml 825 ml 1325 ml Output Total 300 ml Balance 2 ml 525 ml 1325 ml Results/Medications Result Diagram: 09/12/16 0445 09/12/16 0445 Results 24 hrs Laboratory Tests Test 09/11/16 14:10 09/11/16 16:30 09/11/16 20:15 09/12/16 04:45 White Blood Count 10.7 9.5 Red Blood Count 3.97 L 3.90 L Hemoglobin 12.7 12.4 Hematocrit 38.3 38.0 Mean Corpuscular Volume 96.5 97.4 Mean Corpuscular Hemoglobin 32.0 31.8 Mean Corpuscular Hemoglobin Concent 33.2 32.6 Red Cell Distribution Width 13.4 13.8 Platelet Count 232 214 Mean Platelet Volume 11.3 H 11.6 H Neutrophils % 54.1 56.7 Lymphocytes % 32.1 28.5 Monocytes % 7.4 8.6 Eosinophils % 5.4 5.1 Basophils % 0.5 0.5 Nucleated Red Blood Cells % 0.0 0.0 Neutrophils # 5.8 5.4 Lymphocytes # 3.4 H 2.7 Monocytes # 0.8 0.8 Eosinophils # 0.6 H 0.5 Basophils # 0.1 0.1 Nucleated Red Blood Cells # 0.0 0.0 Prothrombin Time 12.6 Prothrombin Time Ratio 1.0 INR International Normalized Ratio 0.94 Activated Partial Thromboplast Time 43.4 H Creatine Kinase 108 85 84 Creatine Kinase Index 5.5 5.5 5.9 Creatinine Kinase MB (Mass) 5.93 H 4.68 H 4.94 H Troponin I 1.930 *H 1.720 *H 2.300 *H Sodium Level 143 Potassium Level 4.4 Chloride Level 107 Carbon Dioxide Level 26 Anion Gap 14 Blood Urea Nitrogen 13 Creatinine 1.09 H Glucose Level 111 Calcium Level 9.0 Magnesium Level 2.1 Triglycerides Level 176 H Cholesterol Level 154 LDL Cholesterol, Calculated 73 HDL Cholesterol 46 Cholesterol/HDL Ratio 3.3 Thyroid Stimulating Hormone (TSH) 1.740 Medications Current Medications Ceftriaxone Sodium (Rocephin) 50 ml @ 100 mls/hr Q24H IVPB Last administered on 09/12/16 12:52; Admin Dose 100 MLS/HR; Start 09/11/16 at 13:00 Buspirone HCl (Buspar) 15 mg BID PO Last administered on 09/12/16 08:29; Admin Dose 15 MG; Start 09/11/16 at 21:00 Nitroglycerin (Nitroglycerin (Sl Tab) 0.4 Mg) 1 tab [id number] PRN SL CHEST PAIN ; Start 09/11/16 at 11:30 Sertraline HCl (Zoloft) 100 mg DAILY PO Last administered on 09/12/16 08:29; Admin Dose 100 MG; Start 09/12/16 at 09:00 Ondansetron HCl (Zofran Tab) 4 mg Q6H PRN PO NAUSEA AND/OR VOMITING Last administered on 09/12/16 00:37; Admin Dose 4 MG; Start 09/11/16 at 11:30 Acetaminophen (Tylenol Tab) 650 mg Q6H PRN PO PAIN LEVEL 1-3 OR FEVER; Start at 11:30 Morphine Sulfate (morphine) 2 mg Q4H PRN IV PAIN LEVEL 7-10 Last administered on 09/11/16 21:39; Admin Dose 2 MG; Start 09/11/16 at 11:30 Docusate Sodium (Colace) 100 mg Q12H PRN PO CONSTIPATION Last administered on 00:19; Admin Dose 100 MG; Start 09/11/16 at 11:30 Bisacodyl (Dulcolax) 5 mg DAILY PRN PO CONSTIPATION; Start 09/11/16 at 11:30 Pantoprazole (Protonix Tab) 40 mg DAILY@06 PO Last administered on 09/12/16 05 :53; Admin Dose 40 MG; Start 09/12/16 at 06:00 Clopidogrel Bisulfate (plaVIX) 75 mg DAILY PO Last administered on 09/12/16 08 :29; Admin Dose 75 MG; Start 09/12/16 at 09:00 Aspirin (Aspirin) 81 mg DAILY PO Last administered on 09/12/16 08:29; Admin Dose 81 MG; Start 09/12/16 at 09:00 Atorvastatin Calcium (Lipitor) 40 mg HS PO Last administered on 09/11/16 21:27 ; Admin Dose 40 MG; Start 09/11/16 at 21:00 Nicotine (Nicoderm 14 Mg/ 24hr) 1 patch DAILY TRANSDERM Last administered on 08:29; Admin Dose 1 PATCH; Start 09/12/16 at 09:00 Metoprolol Tartrate (Lopressor) 12.5 mg BID PO ; Start 09/12/16 at 21:00 Assessment/Plan Chief Complaint/Hosp Course Patient is 50 year old F with CP, with EKG chagnes, not meeting STEMI criteria in ER. Admitted with ACS and first trop was 2.0, meet NSTEMI reange. pt was brought to cath lab tech for urgnet CATH. Problems: Additional Assessment/Plan Post NSTEMI PCI of LAD plavix asa plan for d.c home today YARELY SHRESTHA MD Sep 12, 2016 13:12
[2016-09-12] MEDS: ATORVASTATIN 40 MG TAB PO SCH (21:51)
[2016-09-12] MEDS: morphine 2 MG INJ IV PRN (22:26)
[2016-09-13] VITALS (9 sets, daily range): BP systolic 90–120; BP diastolic 51–61; PULSE 66–85; RESP 15–18
[2016-09-13] MEDS: ALBUTEROL/IPRATROPIUM (NEB) 3 ML AMP NEB SCH ×4 (01:00→12:57)
[2016-09-13] MEDS: PANTOPRAZOLE (EC) 40 MG TAB PO SCH (06:54)
[2016-09-13 08:38] LABS: ADD SCAN DIFF NO
[2016-09-13 08:42] LABS: BASOPHIL # 0.1 10^3/ul (0.0-0.1); BASOPHILS % 0.6 % (0.0-2.0); EOSINOPHILS # 0.5 10^3/ul (0.0-0.5); EOSINOPHILS % 5.9 % (0.0-7.0); HEMATOCRIT 39.8 % (37.0-47.0); HEMOGLOBIN 12.7 g/dl (12.0-16.0); LYMPHOCYTES # 3.3 10^3/ul (0.8-2.9); LYMPHOCYTES % 38.1 % (15.0-51.0); MEAN CORPUSCULAR HEMOGLOBIN 31.1 pg (29.0-33.0); MEAN CORPUSCULAR HGB CONC 31.9 g/dl (32.0-37.0); MEAN CORPUSCULAR VOLUME 97.5 fl (82.0-101.0); MEAN PLATELET VOLUME 11.3 fl (7.4-10.4); MONOCYTE # 0.9 10^3/ul (0.3-0.9); MONOCYTES % 9.9 % (0.0-11.0); NEUTROPHIL # 3.9 10^3/ul (1.6-7.5); NEUTROPHILS % 45.3 % (39.0-77.0); PLATELET COUNT 209 10^3/UL (140-415); RED BLOOD COUNT 4.08 10^6/ul (4.20-5.40); RED CELL DISTRIBUTION WIDTH 13.7 % (11.5-14.5); WHITE BLOOD COUNT 8.7 10^3/ul (4.8-10.8)
[2016-09-13] MEDS: ASPIRIN 81 MG TAB PO SCH (08:59)
[2016-09-13] MEDS: NICOTINE (14 MG/24 HR) PATCH TRANSDERM SCH (08:59)
[2016-09-13] MEDS: CLOPIDOGREL 75 MG TAB PO SCH (08:59)
[2016-09-13] MEDS: BUSPIRONE 10 MG TAB PO SCH (09:00)
[2016-09-13] MEDS: METOPROLOL 25 MG TAB PO SCH (09:00)
[2016-09-13] MEDS: SERTRALINE 100 MG TAB PO SCH (09:00)
[2016-09-13 09:18] LABS: POTASSIUM 4.7 mmol/L (3.5-5.1)
[2016-09-13 09:20] LABS: CREATININE 1.03 mg/dl (0.44-1.00)
[2016-09-13 09:21] LABS: CALCIUM 9.3 mg/dl (8.4-10.2)
[2016-09-13] MEDS: CEFTRIAXONE 1 GM/50 ML (PMX) 50 ML IVPB SCH (12:52)
--- NOTE | 2016-09-13 14:04 | PDOCDIS ---
Discharge Instructions CONDITION Patient Condition: Good HOME CARE INSTRUCTIONS: Special Diet: cardiac ACTIVITY: Activity Restrictions: No Restrictions FOLLOW UP/APPOINTMENTS Appointments Follow up with PCP and cardiology as out-pt RON JOHNSON MD Sep 13, 2016 14:04
[2016-09-13] MEDS ORDERED: CLOP75TA27 PO (14:06)
[2016-09-13] MEDS ORDERED: ATOR20TA38 PO (14:06)
[2016-09-13] MEDS ORDERED: METO-448 PO (14:06)
[2016-09-13] MEDS ORDERED: Nicotine (14 Mg/24 Hr) TRANSDERM (14:06)
[2016-09-13] MEDS ORDERED: ASPI81TA3 PO (14:06)
--- NOTE | 2016-09-13 15:11 | CONS ---
Date/Time of Note Date/Time of Note DATE: 09/13/16 TIME: 15:11 Consult Date/Type/Reason Admit Date/Time Sep 11, 2016 at 11:27 Initial Consult Date 09/11/16 Type of Consultation: Interventional Cardiology Objective Vital Signs Date Time Temp Pulse Resp B/P Pulse Ox O2 Delivery O2 Flow Rate FiO2 09/13/16 12:00 66 09/13/16 11:22 98.3 18 90/55 98 09/12/16 22:30 Room Air 09/12/16 20:47 21 09/11/16 16:00 2.0 Intake and Output 09/12/16 09/12/16 09/13/16 15:00 23:00 07:00 Intake Total 850 ml 560 ml Output Total 300 ml Balance 550 ml 560 ml Results/Medications Result Diagram: 09/13/16 0812 09/13/16 0812 Results 24 hrs Laboratory Tests Test 09/13/16 08:12 White Blood Count 8.7 Red Blood Count 4.08 L Hemoglobin 12.7 Hematocrit 39.8 Mean Corpuscular Volume 97.5 Mean Corpuscular Hemoglobin 31.1 Mean Corpuscular Hemoglobin Concent 31.9 L Red Cell Distribution Width 13.7 Platelet Count 209 Mean Platelet Volume 11.3 H Neutrophils % 45.3 Lymphocytes % 38.1 Monocytes % 9.9 Eosinophils % 5.9 Basophils % 0.6 Nucleated Red Blood Cells % 0.0 Neutrophils # 3.9 Lymphocytes # 3.3 H Monocytes # 0.9 Eosinophils # 0.5 Basophils # 0.1 Nucleated Red Blood Cells # 0.0 Sodium Level 139 Potassium Level 4.7 Chloride Level 105 Carbon Dioxide Level 28 Anion Gap 11 Blood Urea Nitrogen 14 Creatinine 1.03 H Glucose Level 98 Calcium Level 9.3 Medications Current Medications Ceftriaxone Sodium (Rocephin) 50 ml @ 100 mls/hr Q24H IVPB Last administered on 09/13/16 12:52; Admin Dose 100 MLS/HR; Start 09/11/16 at 13:00 Buspirone HCl (Buspar) 15 mg BID PO Last administered on 09/13/16 09:00; Admin Dose 15 MG; Start 09/11/16 at 21:00 Nitroglycerin (Nitroglycerin (Sl Tab) 0.4 Mg) 1 tab [id number] PRN SL CHEST PAIN ; Start 09/11/16 at 11:30 Sertraline HCl (Zoloft) 100 mg DAILY PO Last administered on 09/13/16 09:00; Admin Dose 100 MG; Start 09/12/16 at 09:00 Ondansetron HCl (Zofran Tab) 4 mg Q6H PRN PO NAUSEA AND/OR VOMITING Last administered on 09/12/16 00:37; Admin Dose 4 MG; Start 09/11/16 at 11:30 Acetaminophen (Tylenol Tab) 650 mg Q6H PRN PO PAIN LEVEL 1-3 OR FEVER; Start at 11:30 Morphine Sulfate (morphine) 2 mg Q4H PRN IV PAIN LEVEL 7-10 Last administered on 09/12/16 22:26; Admin Dose 2 MG; Start 09/11/16 at 11:30 Docusate Sodium (Colace) 100 mg Q12H PRN PO CONSTIPATION Last administered on 00:19; Admin Dose 100 MG; Start 09/11/16 at 11:30 Bisacodyl (Dulcolax) 5 mg DAILY PRN PO CONSTIPATION; Start 09/11/16 at 11:30 Pantoprazole (Protonix Tab) 40 mg DAILY@06 PO Last administered on 09/13/16 06 :54; Admin Dose 40 MG; Start 09/12/16 at 06:00 Clopidogrel Bisulfate (plaVIX) 75 mg DAILY PO Last administered on 09/13/16 08 :59; Admin Dose 75 MG; Start 09/12/16 at 09:00 Aspirin (Aspirin) 81 mg DAILY PO Last administered on 09/13/16 08:59; Admin Dose 81 MG; Start 09/12/16 at 09:00 Atorvastatin Calcium (Lipitor) 40 mg HS PO Last administered on 09/12/16 21:51 ; Admin Dose 40 MG; Start 09/11/16 at 21:00 Nicotine (Nicoderm 14 Mg/ 24hr) 1 patch DAILY TRANSDERM Last administered on 08:59; Admin Dose 1 PATCH; Start 09/12/16 at 09:00 Metoprolol Tartrate (Lopressor) 12.5 mg BID PO ; Start 09/12/16 at 21:00 Influenza Virus Vaccine (Fluzone) 0.5 ml ONCE ONCE IM* ; Start 09/14/16 at 12:00 ; Stop 09/14/16 at 12:01 Assessment/Plan Chief Complaint/Hosp Course Patient is 50 year old F with CP, with EKG chagnes, not meeting STEMI criteria in ER. Admitted with ACS and first trop was 2.0, meet NSTEMI reange. pt was brought to cemetery laborer for urgnet CATH. Problems: Additional Assessment/Plan Pt stable d/c home asa plavix YARELY SHRESTHA MD Sep 13, 2016 15:11
--- NOTE | 2016-09-13 19:07 | DS ---
DATE OF ADMISSION: 09/11/2016 DATE OF DISCHARGE: 09/13/2016 CONSULTANTS: Dr. Jean Ellis PROCEDURES: 1. A 2D echocardiogram which showed normal left ventricle systolic function, normal left ventricle cavity size, normal left ventricle wall thickness, ejection fraction estimated 60%, stage I diastoli c dysfunction, hypokinetic mid anterior segment and anterior apex segment. Normal appearance of the mitral valve. Normal appearance of tricuspid valve. Trace tricuspid regurgitation. 2. Selective left and right coronary angiography with left ventriculography, and with left ventricu lar pressure measurement and successful PCI, a proximal left anterior descending with drug-eluting s tent. DISCHARGE DIAGNOSES: 1. Non-ST elevation myocardial infarction, status post coronary angiography and successful PCI in p roximal left anterior descending. Continue aspirin, Plavix, statin and beta alphonso. 2. Essential hypertension. Continue beta alphonso. 3. History of coronary artery disease as above. 4. Major anxiety. Continue BuSpar and Zoloft. 5. Nicotine dependency on nicotine patch, smoking cessation has been advised. 6. Leukocytosis, likely reactive, resolved. MEDICATIONS: 1. Aspirin 81 mg. 2. Lipitor 20 mg. 3. BuSpar 10 mg. 4. Plavix 75 mg. 5. Metoprolol 12.5 mg. 6. Nitroglycerin 0.4 mg. 7. Zoloft 100 mg. 8. Nitroglycerin 14 mg. ALLERGIES: BUPROPION. HOSPITAL COURSE: This is a very pleasant 50-year-old female with past medical history of hypertensi on, anxiety, coronary artery disease, myocardial infarction, and major depression who presents to [facility] secondary to having acute chest discomfort which occurred in the morning of 09/11/2016. Patient has a history of angina and coronary angiogram approximately a year ago, whi ch she stated that no stenting was done. The patient currently is on Plavix and aspirin. Patient w as brought in to EMS, has been having substernal chest pain, diaphoresis consistent no angina pain. Took nitroglycerin at home with no relief. EKG showed normal sinus rhythm with repolarization noted in lead II, III, and aVF, septal ST segment elevation in lead 2. Troponin was found to be elevated at 2.03, creatinine 1.07. Cardiology was consulted. Patient was taken for immediate left heart ca theterization and selective left and right coronary angiography and had a successful PCI and proxima l left anterior descending with Synergy drug-eluting stent, was taken to recovery room and was admit migdalia to the ICU where she was continued on Plavix, aspirin, beta alphonso. The patient tolerated the procedure well and the following day was transferred to telemetry floor which she has been without a ny events such as arrhythmia. The patient denies any chest pain or shortness of breath. She has be en able to tolerate oral intake, has been able to ambulate this morning. LABORATORY DATA: WBC 8.7, hemoglobin 12.79, hematocrit 39.8, platelets 209. Sodium 139, potassium 4.07, chloride 105, bicarbonate 28, BUN 14, creatinine 1.03, glucose 98, calcium 9.3, triglycerides 176, total cholesterol 154, LDL 73, HDL 46. TSH 1.74. The patient for her blood pressure used to be on Norvasc, at this time Norvasc has been discontinued secondary to mild hypotension, has been disc ontinued on Lopressor. For coronary artery disease the patient has been placed on statin despite her LDL being 73 with HDL of 46. The patient at the time of admission was found to have a creatinine o f 1.07 with a BUN of 20, has been placed on gentle IV fluid and at this time her BUN is 14. At this time, the patient is medically stable to be discharged home after evaluation by the cardiology and cristopher ohara as per security delivery specialist standpoint. Dictated By: RON JOHNSON MD PN/NTS Conf#: [id number] DID#: [id number]
[2016-09-14] MEDS ORDERED: INFLUENZA VIRUS VACCINE 0.5 ML SYG IM* ONE (12:00)
== END 2016-09-13 16:45 | disposition home or self-care (01) | DRG 247 ==
LOC: E/R 08:07 → ICU 11:27 → TEL 09-12 22:11
PROVIDERS: ADMIT Family Medicine; ATTEND Family Medicine
PROC: 027034Z Dilation of Coronary Artery, One Artery with Drug-eluting Intraluminal Device, Percutaneous Approach (ICD-10-PCS; principal; 2016-09-11)
PROC: 4A023N7 Measurement of Cardiac Sampling and Pressure, Left Heart, Percutaneous Approach (ICD-10-PCS; 2016-09-11)
PROC: B211YZZ Fluoroscopy of Multiple Coronary Arteries using Other Contrast (ICD-10-PCS; 2016-09-11)
PROC: B215YZZ Fluoroscopy of Left Heart using Other Contrast (ICD-10-PCS; 2016-09-11)
DX: I21.4 Non-ST elevation (NSTEMI) myocardial infarction (principal); I10 Essential (primary) hypertension; I25.10 Atherosclerotic heart disease of native coronary artery without angina pectoris; F41.9 Anxiety disorder, unspecified; F17.210 Nicotine dependence, cigarettes, uncomplicated; Z79.82 Long term (current) use of aspirin; Z79.02 Long term (current) use of antithrombotics/antiplatelets
CPT/HCPCS: 36415; 71010; 80048; 80061; 82550; 82553; 83735; 84443; 84484; 85025; 85610; 85730; 87081; 90686; 93005; 93306; 93458; 94640; 94664; 96374; 96375; 96376; C1769; C1874; C1887; C9600; J0696; J1644; J2250; J2270; J3010; J3480; J7030; J7040; Q9967